=== PATIENT | female | born 1960 ===

== ENCOUNTER 2016-05-25 15:49 | Emergency (ER) | payer OTHER ==
[2016-05-25 16:03] VITALS: TEMP 97.3
[2016-05-25] MEDS ORDERED: PREDNISONE 20 MG TAB PO ONE (16:19)
[2016-05-25] MEDS ORDERED: ALBUTEROL/IPRATROPIUM 1 VIAL SOL INH ONE (16:19)
[2016-05-25] MEDS ORDERED: PREDNISONE 20 MG TAB ONE (16:24)
[2016-05-25] MEDS ORDERED: ALBUTEROL/IPRATROPIUM 1 VIAL SOL ONE (16:24)
[2016-05-25 16:29] VITALS: RESP 24; O2SAT 100
[2016-05-25] MEDS ORDERED: ALBUTEROL HFA 60 PUFF/INHALER INH SCH (17:00)
[2016-05-25 17:26] VITALS: BP 153/82; PULSE 96
== END 2016-05-25 17:07 | disposition home or self-care (01) | DRG 203 ==
LOC: ED 15:49
DX: J20.9 Acute bronchitis, unspecified (principal); Z72.0 Tobacco use
CPT/HCPCS: 71020; 87430; 99283; 99284; J7620

== ENCOUNTER 2017-09-02 17:19 | Emergency (ER) | payer OTHER ==
[2017-09-02 17:47] VITALS: BP 134/89; PULSE 103; RESP 18; TEMP 96.7; O2SAT 98
[2017-09-02] MEDS ORDERED: CARISOPRODOL 350 MG TAB PO PRN (17:58)
[2017-09-02] MEDS ORDERED: KETOROLAC TROMETHAMINE 30 MG/ML SOL IM ONE (17:58)
[2017-09-02] MEDS ORDERED: KETOROLAC TROMETHAMINE 30 MG/ML SOL ONE (18:02)
== END 2017-09-02 18:31 | disposition home or self-care (01) | DRG 552 ==
LOC: ED 17:19
DX: M54.2 Cervicalgia (principal); G89.29 Other chronic pain; M54.5 Low back pain
CPT/HCPCS: 96372; 99282; J1885